=== PATIENT | female | born 1965 | race Caucasian/White ===

== ENCOUNTER → 2018-04-01 | Outpatient (CLI) | payer OTHER ==
[~2018-04-01] MED LIST: AMBEREN; BACTRIM DS TAB1 EACH PO; CARAFATE 1 GM TA1 GM PO; COLACE100 MG PO; IBUPROFEN 600600 M1 PO; MIRALAX17 GM PO; NORCO 5-325 TA1 EAC1 PO; PERICOLACE PO; PRILOSEC40 MG PO; TRINATE TABLET1 TAB PO; TUMERIC PO; UNICOMPLEX M TA1 TA1 PO; VITAMIN B-12500 MCG SL; VITAMIN D400 UNI1 PO; ZOFRAN ODT4 MG DISSOLVE; ZYFLAMEND PO
== END ==
LOC: M.CT 12:32
DX: K76.0 Fatty (change of) liver, not elsewhere classified (principal); Z85.42 Personal history of malignant neoplasm of other parts of uterus

== ENCOUNTER → 2018-05-24 | Outpatient (CLI) | payer OTHER | LOC: M.RAD 15:56 | DX: Z13.820 Encounter for screening for osteoporosis (principal); M85.88 Other specified disorders of bone density and structure, other site; Z78.0 Asymptomatic menopausal state ==

== ENCOUNTER 2018-06-19 04:02 | Emergency (ER) | payer OTHER ==
[~2018-06-19] VITALS: Ht 152.4 cm; Wt 53.5 kg
[~2018-06-19 04:02] MED LIST changes: -CARAFATE 1 GM TA1 GM PO; -ZOFRAN ODT4 MG DISSOLVE
[2018-06-19 04:13] LABS: URINE BILIRUBIN NEGATIVE (Negative); URINE BLOOD NEGATIVE (Negative); URINE CLARITY CLEAR; URINE COLOR YELLOW; URINE GLUCOSE-RANDOM NEGATIVE (Negative); URINE KETONES NEGATIVE (Negative); URINE LEUKOCYTES-REFLEX 1+ (Negative); URINE NITRITE-REFLEX NEGATIVE (Negative); URINE PROTEIN NEGATIVE (Negative); URINE UROBILINOGEN 0.2 E.U./dl (0.2-1.0)
[2018-06-19 05:14] LABS: HEMOGLOBIN 12.8 gm/dL (12.0-15.0); MCHC 32.7 g/dL (28.0-37.0); MCV 88.7 fL (80.0-100.0); MPV 7.5 fl. (7.2-11.1); NUCLEATED RBCS 0 /100WBC; PLATELET COUNT* 345 thou/uL (150-400); WBC 11.9 thou/uL (4.0-11.0)
[2018-06-19 05:24] LABS: SQUAMOUS 4-10 Moderate /LPF (0-3)
[2018-06-19 05:25] LABS: BACTERIA-REFLEX 1-9 Few /HPF (None Seen); CASTS None Seen /LPF (None Seen); URINE RBC None Seen /HPF (0-2); URINE WBC-REFLEX 6-15 Few /HPF (0-5)
[2018-06-19 05:26] LABS: AMORPHOUS PHOSPHATES Few /LPF (None Seen)
[2018-06-19 05:35] LABS: CALCIUM 9.2 mg/dL (8.5-10.1); CREATININE 0.7 mg/dL (0.6-1.3); POTASSIUM 3.6 mmol/L (3.5-5.1)
[2018-06-19 05:39] LABS: ALBUMIN 3.7 g/dL (3.4-5.0); TOTAL BILIRUBIN 0.3 mg/dL (<0.1-1.0); TOTAL PROTEIN 6.8 g/dL (6.4-8.2)
[2018-06-19] MEDS ORDERED: CARAFATE 1 GM TA1 GM PO (06:50)
[2018-06-19] MEDS ORDERED: ZOFRAN ODT4 MG DISSOLVE (07:17)
[2018-06-19 07:18] VITALS: BP 139/61
[2018-06-19 07:39] LABS: ABSOLUTE EOSINOPHILS 0.1 thou/uL (0.0-0.7); ABSOLUTE LYMPHOCYTES 1.3 thou/uL (0.8-5.3); ABSOLUTE MONOCYTES 0.4 thou/uL (0.0-1.2); ABSOLUTE NEUTROPHILS 10.1 thou/uL (1.6-8.1)
[2018-06-19 07:40] LABS: GIANT PLATELETS RARE; PLATELET ESTIMATE ADEQUATE
== END 2018-06-19 07:18 | disposition home or self-care (01) ==
LOC: M.ERS 04:02
PROVIDERS: Emergency Medicine
DX: R10.9 Unspecified abdominal pain (principal); R11.0 Nausea; Z90.710 Acquired absence of both cervix and uterus; Z98.890 Other specified postprocedural states; Z88.1 Allergy status to other antibiotic agents; Z88.0 Allergy status to penicillin; Z88.8 Allergy status to other drugs, medicaments and biological substances